=== PATIENT | female | born 1985 | race Hispanic/Latino ===

== ENCOUNTER 2024-11-26 21:08 | Emergency (ER) | payer MEDICARE ==
[~2024-11-26] VITALS: Ht 157.5 cm; Wt 72.3 kg
[2024-11-26] MEDS ORDERED: ATORVASTATIN CA20 MG PO (21:23)
[2024-11-26] MEDS ORDERED: METFORMIN HCL1000 MG PO (21:23)
[2024-11-26] MEDS ORDERED: OXYCODONE HCL5 M3 PO (21:24)
[2024-11-26 21:31] LABS: BASOPHILS 0.5 % (0.1-1.2); EOSINOPHILS 4.0 % (0.7-5.8); LYMPHOCYTES 33.2 % (19.3-51.7); MCH 28.2 PG (25.6-32.2); MCHC 32.8 g/dL (32.2-35.5); MCV 86.2 fL (79.4-94.8); MONOCYTES 7.5 % (4.7-12.5); NEUTROPHILS 54.6 % (34.0-71.1); RBC 3.54 M/uL (3.93-5.22)
[2024-11-26 21:42] LABS: ALT (SGPT) 18.0 U/L (14-59); AST (SGOT) 11.0 U/L (15-37); GLOMERULAR FILTRATION RATE,EST 61.0 mL/min (>60); PROTEIN, TOTAL 7.6 g/dL (6.4-8.2); UREA NITROGEN 27.0 mg/dL (7-18)
[2024-11-26] MEDS ORDERED: LACTATED RINGER'S 1,000 ML IV ONE (21:45)
[2024-11-26] MEDS ORDERED: FAMOTIDINE 20 MG/ 2 ML VIAL IV ONE (21:45)
[2024-11-26 23:03] LABS: BLOOD/HGB, URINE TRACE-I (Negative); KETONE, URINE NEGATIVE (Negative); LEUK ESTERASE, URINE TRACE (negative); NITRITE, URINE NEGATIVE (negative)
[2024-11-26 23:08] LABS: EPITHELIAL CELLS, URINE SQUAMOUS 1+ /lpf (0-1+)
[2024-11-26 23:09] LABS: BACTERIA, URINE RARE /hpf (negative); CASTS, URINE NONE SEEN \\lpf; CRYSTALS, URINE NONE SEEN (0-1+); REFLEX CULTURE, URINE No (No)
[2024-11-26] MEDS ORDERED: CEPHALEXIN500 M1 PO (23:29)
[2024-11-26] MEDS ORDERED: ONDANSETRON ODT4 MG PO (23:29)
[2024-11-26] MEDS ORDERED: ONDANSETRON 4 MG HOME.PACK SL ONE (23:30)
[2024-11-26] MEDS ORDERED: CEPHALEXIN MONOHYDRATE 500 MG HOME.PACK PO ONE (23:30)
[2024-11-26] MEDS ORDERED: PRILOSEC OTC20 MG PO (23:31)
[2024-11-26 23:45] VITALS: BP 134/85
--- NOTE | 2024-11-27 15:04 | EKG ---
[facility] [address] [facility] [place] [address] Signed Sinus tachycardia Low voltage QRS Borderline ECG No previous ECGs available Confirmed by Rehana Ravi MD () on 11/27/2024 3:04:35 PM Electronically Signed By: REHANA RAVI MD 11/27/24 1504 PATIENT NAME: TIM PINON Electrocardiogram DATE OF : 81 PHYSICIAN: REHANA RAVI MD REPORT #: [id number] REPORT IS CONFIDENTIAL AND NOT TO BE RELEASED WITHOUT AUTHORIZATION
== END 2024-11-26 23:46 | disposition home or self-care (01) ==
LOC: ED 21:08
PROVIDERS: Internal Medicine
DX: N39.0 Urinary tract infection, site not specified (principal); E11.9 Type 2 diabetes mellitus without complications; Z90.5 Acquired absence of kidney; Z79.84 Long term (current) use of oral hypoglycemic drugs; Z79.899 Other long term (current) drug therapy
CPT/HCPCS: 36415; 80053; 81001; 83690; 83735; 84702; 85025; 87088; 93005; 93010; 96361; 96374; 96375; 99284-25; A9270; J2405; J7121